=== PATIENT | female | born 1995 | race Caucasian/White ===

== ENCOUNTER 2022-03-28 07:03 | Outpatient (CLI) | payer OTHER ==
--- NOTE | 2022-03-28 09:36 | Ultrasound Report ---
PROCEDURE: OB Detailed Eval INDICATIONS: SUPERVISION OF OUTSIDE/PRIOR DATING DATA: Last menstrual period (LMP): Unknown. First dating scan (date and location): February 10, 2022. Estimated date of delivery (VINAY) from first dating scan: July 19, 2022. TECHNIQUE: Real-time scanning was performed of the fetus, with image documentation and biometric measurements. COMPARISON: None. FINDINGS: General: A single living intrauterine gestation is present. Presentation: Variable Placenta: Placental position is anterior, without previa. Amniotic fluid index: 21.4 cm, appropriate for gestational age. heart rate: 150 beats per minute. Maternal cervical canal: 4.1 cm long; normal length is 2.5 cm or more. biometrics: Biparietal diameter: 6.1 cm Head circumference: 22.5 cm Abdominal circumference: 19.5 cm Femur length: 4.2 cm Estimated gestational age from initial scan: 23 weeks, 6 days. Composite gestational age from present scan: 24 weeks, 2 days Estimated weight and percentile: 658 g; 52 percentile Measurement variability in biometric dating: +/- 10 days from 12-20 weeks gestation, +/- 2 weeks from 20-30 weeks gestation, +/- 3 weeks at 30 weeks gestation or later. Anatomic survey: Neuro: Ventricles are normal at less than 10 mm. Cisterna magna is normal at 3-11 mm. Cerebellum i s normal in size and morphology. Nuchal skin fold: Not well seen. Face: Nose and lips, facial profile are normal. Spine: No evidence for spina bifida. Heart: 4-chambered heart is present, with normal ventricular outflow tracts. Diaphragm: Diaphragm is intact. Stomach: Left-sided stomach is present. Kidneys: No hydronephrosis. Normal is less than 5 mm in 2nd trimester, less than 7 mm in 3rd trimester. Cord: 3 vessel cord has orthotopic insertion. Bladder: Normal in size. Extremities: All 4 extremities are visualized. IMPRESSION: Single intrauterine gestation as detailed above. Reviewed by: Reji Torres MD on 03/28/2022 9:35 AM PDT Approved by: Reji Torres MD on 03/28/2022 9:35 AM PDT Station ID: [id number]
== END 2022-03-28 07:04 | disposition home or self-care (01) ==
LOC: DI 07:03
PROVIDERS: ATTEND Obstetrics & Gynecology
DX: Z34.82 Encounter for supervision of other normal pregnancy, second trimester (principal); Z3A.24 24 weeks gestation of pregnancy

== ENCOUNTER 2023-02-06 12:16 | Outpatient (CLI) | payer OTHER ==
--- NOTE | 2023-02-07 09:12 | Mammography Report ---
BILATERAL DIGITAL DIAGNOSTIC MAMMOGRAM 3D/2D WITH EXAGGERATED CC: 02/06/2023 CLINICAL: Baseline exam. Right breast enlargement. No prior exams were available for comparison. Both breasts are extremely dense, which lowers the sensitivity of mammography (category d />75% gland ular tissue). The right breast is larger than the left. No significant masses, calcifications, or other findings are seen in either breast. IMPRESSION: NEGATIVE There is no mammographic evidence of malignancy. Based on the Tyrer Cuzick model (a risk assessment model) the patients lifetime risk is 11.9% and he r 10 year risk is 0.2%. According to the ACR, ACS, and NCCN guidelines, an annual breast MRI exam dunia ng with mammogram is recommended if the patients lifetime risk is 20% or greater. This exam was interpreted at Station ID: [id number]. NOTE: For mammograms, a report in lay terms will be sent to the patient. Approximately 15% of breast malignancies will not be visualized mammographically. In the management of a palpable breast mass, a negative mammogram must not discourage biopsy of a clinically suspicious lesion. Electronically Signed By: Alfonso Burgos M.D. [email or web address]:02/06/2023 13:41:02 ACR BI-RADS Category 1: Negative 3341F PARENCHYMAL PATTERN: (VD) - The breast(s) demonstrate(s) extremely dense parenchyma, limiting the sen sitivity of mammography. BI-RADS CATEGORY: (1) - 1 RECOMMENDATION: (ADDMAM) - Recommend additional mammographic views. no recall/no msg LATERALITY: (B)
== END 2023-02-06 12:17 | disposition home or self-care (01) ==
LOC: DI 12:16
PROVIDERS: ATTEND Internal Medicine
DX: N62 Hypertrophy of breast (principal)